=== PATIENT | female | born 1965 | race African-American/Black ===

== ENCOUNTER 2017-11-01 09:21 | Inpatient (IN) | payer BC ==
[2017-11-01] VITALS (14 sets, daily range): BP systolic 93–127; BP diastolic 57–86
[~2017-11-01] VITALS: Ht 168.9 cm; Wt 62.1 kg
[~2017-11-01 09:21] MED LIST: cefOXitin Sod 2 GM in D5W 110 ML IVPB ONE
[2017-11-01] MEDS ORDERED: Ropivacaine 5mg/ml Vial 30ml INJ ONE (10:12)
[2017-11-01] MEDS ORDERED: BIOTIN1 M1 PO (10:20)
[2017-11-01] MEDS ORDERED: VITAMIN D1000 UNI1 ORAL (10:20)
[2017-11-01] MEDS ORDERED: FOLIC ACID1 MG ORAL (10:20)
--- NOTE | 2017-11-01 11:50 | Pre-Procedure Note/Attestation ---
Pre-Procedure Note/Attestation Complete Prior to Procedure Planned Procedure: not applicable Procedure Narrative: supracervical hysterectomy/ bilateral salpingectomies Indications for Procedure Pre-Operative Diagnosis: symptomatic large uterine fibroids/ elective prophylactic salpingectomies Attestation I attest that I discussed the nature of the procedure; its benefits; risks and complications; and alternatives (and the risks and benefits of such alternatives ), prior to the procedure, with the patient (or the patient's legal franchise sales representative). I attest that, if there was a reasonable possibility of needing a blood transfusion, the patient (or the patient's legal franchise sales representative) was given the [facility] standardized written summary, pursuant to the [place] Blood Safety Act ([place] Health and Safety Code # 1645, as amended). I attest that I re-evaluated the patient just prior to the surgery and that there has been no change in the patient's H&P, except as documented below: TOBI CARIAS Nov 01, 2017 11:50
[2017-11-01] MEDS ORDERED: Zemuron 50mg/5ml Inj IV ONE (12:00)
[2017-11-01] MEDS ORDERED: Glycopyrrolate 0.2mg/ml 1ml Vial ONE (12:00)
[2017-11-01] MEDS ORDERED: NS Irrig 1000ml ONE (12:00)
[2017-11-01] MEDS ORDERED: Succinylcholine 20mg/ml 10ml vial ONE (12:00)
[2017-11-01] MEDS ORDERED: Midazolam 2mg/2ml Inj ONE (12:00)
[2017-11-01] MEDS ORDERED: LR 1000ml ONE (12:00)
[2017-11-01] MEDS ORDERED: Propofol 200mg/20ml IV ONE (12:00)
[2017-11-01] MEDS ORDERED: PCA Education Pamphlet MISC ONE (12:00)
[2017-11-01] MEDS ORDERED: Morphine Sulfate 10mg/ml Inj ONE (12:00)
[2017-11-01] MEDS ORDERED: Sterile Water Irrig 1000ml IRRIG ONE (12:00)
[2017-11-01] MEDS ORDERED: fentaNYL 100 mcg/2 mL IV ONE (12:00)
[2017-11-01] MEDS ORDERED: Zolpidem 5mg tab ORAL PRN (12:00)
[2017-11-01] MEDS ORDERED: Rate Change PCA 1 Each MISC PRN (12:00)
[2017-11-01] MEDS ORDERED: DiphenhydrAMINE 50mg/ml Inj IVP PRN (12:00)
[2017-11-01] MEDS ORDERED: Naloxone 0.4mg/ml Inj IVP PRN (12:00)
[2017-11-01] MEDS ORDERED: LR 1000ml 1,000 ML IVLG SCH (13:32)
[2017-11-01] MEDS ORDERED: Labetalol 5mg/ml 20ml vial IV PRN (13:45)
[2017-11-01] MEDS ORDERED: Ketorolac 30mg Inj IV PRN (13:45)
[2017-11-01] MEDS ORDERED: Acetaminophen (Non formulary) 100 ML IV ONE (13:45)
[2017-11-01] MEDS ORDERED: Midazolam 2mg/2ml Inj IVP PRN (13:45)
[2017-11-01] MEDS ORDERED: PCA HYDROmorphone 1mg/ml 30 ML IV PRN (14:00)
--- NOTE | 2017-11-01 14:07 | Brief Operative Note ---
Immediate Post Operative Note Operative Note Pre-op Diagnosis: symptomatic large uterine fibroids/ elective prophylactic salpingectomies Procedure: supracervical hysterectomy bilateral salpingoopherectomy Post-op Diagnosis: same Surgeon: Zackary Gates Qa Internship: Zackary Santos Anesthesia: general Specimen: yes Complications: none Condition: stable Fluids: 800 cc crystalloid Estimated Blood Loss: volume - 200 cc Drains: none Implant(s) used?: No TOBI GATES Nov 01, 2017 14:07
[2017-11-01] MEDS: Hydromorphone 0.5mg/0.5ml inj IVP PRN ×2 (14:36→14:54)
[2017-11-01] MEDS ORDERED: DiphenhydrAMINE 50mg/ml Inj IVP ONE (15:30)
[2017-11-01] MEDS: PCA shift volume MISC SCH (19:08)
[2017-11-02 00:09] VITALS: BP 98/63
[2017-11-02 04:00] VITALS: BP 95/69
--- NOTE | 2017-11-02 06:52 | 48 Hour Post Anesthesia Eval ---
Post Anesthesia Evaluation Procedure: Supraervical myomectomy and BSO Date of Evaluation: Nov 02, 2017 Time of Evaluation: 06:00 Blood Pressure Systolic: 95 0: 69 Pulse Rate: 80 Respiratory Rate: 18 Temperature (Fahrenheit): 98.2 O2 Sat by Pulse Oximetry: 98 Airway: patent Nausea: No Vomiting: No Pain Intensity: 2 Hydration Status: adequate Cardiopulmonary Status: a baseline Mental Status/LOC: patient returned to baseline Post-Anesthesia Complications: 0 Follow-up care needed: N/A - further caree as per primry team JOSE REESE M.D. Nov 02, 2017 06:52
[2017-11-02] MEDS: PCA shift volume MISC SCH (07:20)
[2017-11-02 08:00] VITALS: BP 91/60
[2017-11-02 08:01] LABS: BASOPHILS % (AUTO) 1.1 % (0.0-2.0); EOSINOPHILS % (AUTO) 1.1 % (0.0-3.0); HEMATOCRIT 34.8 % (37.0-47.0); LYMPHOCYTES % (AUTO) 9.3 % (20.0-45.0); MEAN CORPUSCULAR VOLUME 90 FL (80-99); MONOCYTES % (AUTO) 9.5 % (1.0-10.0); PLATELET COUNT 276 K/UL (150-450); RED BLOOD COUNT 3.87 M/UL (4.20-5.40); RED CELL DISTRIBUTION WIDTH 11.4 % (11.6-14.8)
[2017-11-02 08:12] LABS: ANION GAP 7 mmol/L (5-15); BLOOD UREA NITROGEN 8 mg/dL (7-18); CALCIUM 7.6 MG/DL (8.5-10.1); CARBON DIOXIDE 25 MMOL/L (21-32); CHLORIDE 104 MMOL/L (98-107); CREATININE 0.7 MG/DL (0.55-1.30); POTASSIUM 3.8 MMOL/L (3.5-5.1); SODIUM 136 MMOL/L (136-145)
[2017-11-02] MEDS: Docusate 100mg cap ORAL SCH ×2 (08:39→17:31)
[2017-11-02] MEDS ORDERED: Ketorolac 30mg Inj IV PRN (10:00)
[2017-11-02] MEDS ORDERED: Norco 5mg/325mg tab ORAL PRN (10:00)
--- NOTE | 2017-11-02 10:10 | General Surgery Progress Note ---
General Surgery-Progress Note Subjective Procedure Performed supracervical hysterectomy bilateral salpingoopherectomy Symptoms: pain absent Objective Last 24 Hour Vital Signs Date Time Temp Pulse Resp B/P (MAP) Pulse Ox O2 Delivery O2 Flow Rate FiO2 11/02/17 08:00 98.2 75 18 91/60 98 98.2 11/02/17 08:00 18 11/02/17 06:52 208.8 80 18 98 11/02/17 04:00 98.2 80 18 95/69 98 Room Air 98.2 11/02/17 04:00 18 11/02/17 00:09 97.7 83 18 98/63 97 Room Air 97.7 11/02/17 00:04 18 11/01/17 20:05 108/65 11/01/17 20:00 97.2 88 18 93/57 97 Room Air 97.2 11/01/17 20:00 18 11/01/17 17:39 17 11/01/17 17:09 17 11/01/17 16:39 17 11/01/17 16:30 17 11/01/17 16:30 97.1 79 17 107/78 97 97.1 11/01/17 16:24 17 11/01/17 16:15 17 11/01/17 16:15 97.6 73 18 125/83 97 Nasal Cannula 3.0 97.6 11/01/17 16:09 17 11/01/17 16:00 79 19 126/79 96 Nasal Cannula 3.0 11/01/17 15:54 17 11/01/17 15:53 97.5 11/01/17 15:50 75 15 127/76 98 Nasal Cannula 3.0 11/01/17 15:30 82 19 126/76 97 Nasal Cannula 3.0 11/01/17 15:15 82 18 122/78 99 Nasal Cannula 3.0 11/01/17 15:00 88 17 119/82 100 Nasal Cannula 3.0 11/01/17 14:54 98.0 11/01/17 14:50 98.0 11/01/17 14:50 82 19 124/86 97 Nasal Cannula 3.0 11/01/17 14:40 79 18 123/81 99 Nasal Cannula 3.0 11/01/17 14:38 97.8 11/01/17 14:36 97.8 11/01/17 14:30 98 17 118/80 100 Nasal Cannula 3.0 11/01/17 14:23 97.2 102 18 121/71 99 Nasal Cannula 3.0 97.2 11/01/17 10:27 97.8 61 18 102/64 100 Room Air 97.8 I&O Intake and Output 11/01/17 11/02/17 19:00 07:00 Intake Total 615 ml 1860 ml Output Total 250 ml 900 ml Balance 365 ml 960 ml Intake Oral 290 ml 360 ml IV Total 325 ml 1500 ml Output Urine Total 250 ml 900 ml # Voids 1 Dressing: dry Drains: none Cardiovascular: RSR Respiratory: clear Abdomen: soft, distended - minimally, non-tender - less tender than expected post op, tenderness, present bowel sounds Laboratory Tests Test 11/02/17 07:12 White Blood Count 12.0 K/UL (4.8-10.8) H Red Blood Count 3.87 M/UL (4.20-5.40) L Hemoglobin 12.0 G/DL (12.0-16.0) Hematocrit 34.8 % (37.0-47.0) L Mean Corpuscular Volume 90 FL (80-99) Mean Corpuscular Hemoglobin 31.0 PG (27.0-31.0) Mean Corpuscular Hemoglobin Concent 34.5 G/DL (32.0-36.0) Red Cell Distribution Width 11.4 % (11.6-14.8) L Platelet Count 276 K/UL (150-450) Mean Platelet Volume 6.5 FL (6.5-10.1) Neutrophils (%) (Auto) 79.0 % (45.0-75.0) H Lymphocytes (%) (Auto) 9.3 % (20.0-45.0) L Monocytes (%) (Auto) 9.5 % (1.0-10.0) Eosinophils (%) (Auto) 1.1 % (0.0-3.0) Basophils (%) (Auto) 1.1 % (0.0-2.0) Sodium Level 136 MMOL/L (136-145) Potassium Level 3.8 MMOL/L (3.5-5.1) Chloride Level 104 MMOL/L (98-107) Carbon Dioxide Level 25 MMOL/L (21-32) Anion Gap 7 mmol/L (5-15) Blood Urea Nitrogen 8 mg/dL (7-18) Creatinine 0.7 MG/DL (0.55-1.30) Estimat Glomerular Filtration Rate > 60 mL/min (>60) Glucose Level 101 MG/DL (74-106) Calcium Level 7.6 MG/DL (8.5-10.1) L Assessment Post-op Diagnosis same Plan Additional Comments s/p supracervical hysterectomy doing well strongly desires to be discharged if able to void/ passes gas will discharge today TOBI CARIAS Nov 02, 2017 10:09
[2017-11-02 12:00] VITALS: BP 93/56
[2017-11-02 16:00] VITALS: BP 99/60
--- NOTE | 2017-11-02 17:00 | Operative Note - Dictated ---
DATE OF OPERATION: 11/02/2017 PREOPERATIVE DIAGNOSIS: Symptomatic uterine fibroids. POSTOPERATIVE DIAGNOSIS: Symptomatic uterine fibroids. PROCEDURES: 1. Supracervical hysteroscopy. 2. Bilateral salpingectomy. 3. Extensive lysis of adhesions. SURGEON: Jackie Gates M.D. SEISMOGRAPH RECORDER: Skye Santos M.D. ANESTHESIA: General endotracheal. ANESTHESIOLOGIST: ESTIMATED BLOOD LOSS: 200 mL. FINDINGS: Approximately an 18-week size fibroid uterus, extensive adhesions between the omentum and uterus, small bowel and uterus, adhesions between bilateral ovaries and tubes and posterior uterus. PROCEDURE IN DETAIL: After ensuring informed consent, the patient was taken to the operating room where general anesthesia was induced. The patient was sterilely prepped and draped. A low transverse skin incision was made in the area of prior myomectomy incision and carried down to the level of the fascia with the Bovie. The fascia was nicked in the midline. Incision was extended laterally. Fascia was tented up and both bluntly and sharply dissected from the underlying rectus muscles. The rectus muscles were parted in the midline and the peritoneum was entered bluntly. Peritoneal incision was extended superiorly and inferiorly. The uterus was partially exteriorized. There were omental adhesions on the left side which were grasped with Pean, transected and suture ligated. There were adhesions between small bowel and posterior uterus which were both filmy and dense which were transected close to the uterus with a Bovie with care being taken to avoid the bowel. Attention was turned to the uterus itself, the anatomy was distorted by the fibroids. The right side was identified, grasped with Kochers, transected and suture ligated. The vesicouterine peritoneum was entered with the Bovie and the bladder was pushed down from the lower uterine segment. A window was made in the broad ligament on the right side. Luis Angel clamps were passed through the window transected and the pedicle was suture ligated, freeing up the uterus somewhat on the right side. Uterus was further pulled up into the incision. Attention was turned to the left side where the round ligament was now identified, grasped with Ramses, transected and suture ligated. A window was created in the broad ligament on the left. Zeppelin were passed through the window and ovary on the left side was transected and doubly ligated. Please note that at this point, the left tube was likewise amputated and left in the side of the uterus, left ovary however was adherent to the uterus and it was resected carefully from the uterus until it was free. Vesicouterine perineum on the left side was further pushed down from the lower uterine segment. The left uterine artery was identified, skeletonized, grasped with curved zeppelins, double clamped and cut. The uterine artery was cut and doubly suture ligated. Attention was turned to the uterine on the right side which was likewise grasped and doubly ligated. After transection at this point, a couple of more bites were taken along the cardinals to get to the lower uterine segment. At this point, uterus was amputated. Cervix was scored with an 11 blade and sutured over with 0 Vicryl. Excellent hemostasis was assured. The abdomen was irrigated with approximately a liter and a half of normal saline, irrigant was suctioned off. Again excellent hemostasis was visualized. Peritoneum was closed with 2-0 Vicryl. Subcutaneous tissue was closed with 3-0 plain after irrigation and the skin was closed with 3-0 Monocryl on a Viktor needle. Steri-Strips were placed likewise on the skin. At the end of the procedure, all instrument and lap counts were correct x3. The patient was taken to the recovery area extubated and in stable condition. Jackie Gates M.D. DR: Jose Eduardo JOB#: [id number] CC:
[2017-11-03] MEDS ORDERED: Ketorolac 30mg Inj IV PRN (12:00)
[2017-11-03] MEDS ORDERED: Norco 5mg/325mg tab ORAL PRN (12:00)
[2017-11-03] MEDS ORDERED: HYDROcodone/Acetamin 10/325 tab ORAL PRN (12:00)
--- NOTE | 2017-11-03 13:17 | Discharge Summary ---
Discharge Summary Hospital Course Date of Admission Nov 01, 2017 at 09:37 Date of Discharge Nov 02, 2017 at 19:03 Admitting Diagnosis HPI Charity Wharton is a 52 year old female who was admitted on Nov 01, 2017 at 09 :37 for Uterine Fibroids Hospital Course [id number] Discharge Discharge Disposition Patient was discharged to home Discharge Diagnoses: Joceline Armendariz NP Nov 03, 2017 13:17
--- NOTE | 2017-11-03 22:45 | Discharge Summary 2 SIG ---
DATE OF ADMISSION: 11/01/2017 DATE OF DISCHARGE: 11/02/2017 BRIEF HOSPITAL COURSE: The patient is a 52-year-old female who has symptomatic uterine fibroids and was admitted on 11/02/2017, and underwent supracervical hysteroscopy with bilateral salpingectomy and extensive lysis of adhesions. She tolerated procedure well. Postoperatively, she was admitted to medical floor and was given pain management. She was initially on clear liquids and was advanced to regular diet. She had good pain control. SHOE STITCHER ODD was discontinued. She voided 400 mL after removal of Lozada catheter and denied any dysuria. Her vitals were stable. She was eventually discharged home. FINAL DIAGNOSES: 1. Symptomatic uterine fibroid. 2. Status post supracervical hysteroscopy. 3. Bilateral salpingectomy. 4. Extensive lysis of adhesions. Refer to operative report. DISPOSITION: The patient was discharged home. DISCHARGE INSTRUCTIONS: Follow up as an outpatient in a week. Jackie Gates M.D. I have been assigned to dictate discharge summary on this account and I was not involved in the patient's management. Joceline Armendariz N.P. DR: Lorin JOB#: [id number] CC: INOCENCIO
== END 2017-11-02 19:03 | disposition home or self-care (01) | DRG 743 ==
LOC: SDSOVERFLO 09:37 → 3E 16:22
PROC: 0UT90ZL Resection of Uterus, Supracervical, Open Approach (ICD-10-PCS; principal; 2017-11-02)
PROC: 0UT70ZZ Resection of Bilateral Fallopian Tubes, Open Approach (ICD-10-PCS; principal; 2017-11-02)
PROC: 0DNU0ZZ Release Omentum, Open Approach (ICD-10-PCS; principal; 2017-11-02)
DX: D25.9 Leiomyoma of uterus, unspecified (principal); N73.6 Female pelvic peritoneal adhesions (postinfective)
CPT/HCPCS: 36415; 80048; 81025; 85025; 86850; 86900; 86901; 87081; 94003; 94150; J2250